=== PATIENT | female | born 1965 | race Caucasian/White ===

== ENCOUNTER 2022-10-12 18:38 | Emergency (ER) | payer BC ==
[~2022-10-12] VITALS: Ht 162.6 cm; Wt 79.0 kg
[2022-10-12 19:30] VITALS: BP 158/115
== END 2022-10-13 02:03 | disposition left against medical advice (07) ==
LOC: ER 18:38
DX: M25.551 Pain in right hip (principal); Z53.21 Procedure and treatment not carried out due to patient leaving prior to being seen by health care provider; X58.XXXA Exposure to other specified factors, initial encounter; Y93.89 Activity, other specified; Y92.89 Other specified places as the place of occurrence of the external cause; Y99.8 Other external cause status